=== PATIENT | male | born 1980 ===

== ENCOUNTER 2018-04-08 19:06 | Emergency (ER) | payer MEDICAID, OTHER ==
[2018-04-08 19:06] VITALS: BMI 31.4
[2018-04-08 19:16] VITALS: TEMP 98; O2SAT 99
[2018-04-08 20:19] LABS: BASO # 0.1 K/uL (0.0-0.2); BASO % 0.7 % (0.0-2.0); EOS # 0.3 K/uL (0.0-0.7); EOS % 2.8 % (0.0-4.0); HEMOGLOBIN 15.2 g/dL (12.0-18.0); LYMPH # 3.3 K/uL (1.0-4.3); LYMPH % 32.5 % (20.0-40.0); MEAN CELL VOLUME 89.5 fl (80.0-94.0); MEAN CORPUSCULAR HEMOGLOBIN 30.9 pg (27.0-31.0); MEAN CORPUSCULAR HGB CONC 34.5 g/dL (33.0-37.0); MEAN PLATELET VOLUME 9.1 fl (7.2-11.7); MONO # 0.8 K/uL (0.0-0.8); MONO % 7.3 % (0.0-10.0); NEUT # 5.8 K/uL (1.8-7.0); NEUT % 56.7 % (50.0-75.0); RBC 4.94 Mil/uL (4.40-5.90); RED CELL DISTRIBUTION WIDTH 13.7 % (11.5-14.5); WHITE BLOOD COUNT 10.3 K/uL (4.8-10.8)
[2018-04-08 20:34] LABS: ALB/GLOB RATIO 1.2 (1.0-2.1); ALBUMIN 4.2 g/dL (3.5-5.0); ALT/SGPT 67 U/L (21-72); AST/SGOT 40 U/L (17-59); BLOOD UREA NITROGEN 15 mg/dl (9-20); CALCIUM 9.7 mg/dL (8.4-10.2); GFR AFRICAN-AMERICAN > 60; GFR NON-AFRICAN AMERICAN > 60; LIPASE 92 U/L (23-300)
--- NOTE | 2018-04-08 20:42 | ED PDOC ---
HPI: Chest Pain Time Seen by Provider: 04/08/18 19:25 Chief Complaint (Nursing): Chest Pain Chief Complaint (Provider): chest pain History Per: Patient History/Exam Limitations: no limitations Onset/Duration Of Symptoms: Days (5 days) Current Symptoms Are (Timing): Constant Quality: Pressure Exacerbating Factors: Deep Breathing Additional Complaint(s): 37 year old male presents to the ED complaining of chest pain onset 5 days ago. Reports as he was smoking a cigarette, he felt pain on the right side of his neck and the pain radiated down to his chest and left upper quadrant. Describes the pain as constant and pressure-like. It is becomes worse with deep breaths or lying down. Patient took ibuprofen without any relief. He has developed fever , chills, and dizziness. Denies cough, nausea, or vomiting. PMD: [facility] Past Medical History Reviewed: Historical Data, Nursing Documentation, Vital Signs Vital Signs: Last Vital Signs Temp 98 F 04/08/18 19:13 Pulse 82 04/08/18 20:05 Resp 18 04/08/18 19:13 BP 129/74 04/08/18 20:05 Pulse Ox 99 04/09/18 00:17 - Medical History PMH: Asthma - Family History Family History: States: Unknown Family Hx - Social History Current smoker - smoking cessation education provided: Yes Alcohol: Other (rarely) Drugs: Denies - Immunization History Hx Tetanus Toxoid Vaccination: No Hx Influenza Vaccination: No Hx Pneumococcal Vaccination: No - Home Medications Home Medications: Ambulatory Orders Medication Instructions Recorded traMADol [Ultram] 50 mg PO Q6 PRN #20 tab 05/18/17 Acetaminophen [Tylenol Extra 1,000 mg PO Q6 PRN #100 tablet 04/09/18 Strength] Omeprazole Magnesium [Prilosec Otc] 20 mg PO DAILY #30 tcp 04/09/18 traMADol [Ultram] 50 mg PO TID PRN #15 tab 04/09/18 - Allergies Allergies/Adverse Reactions: Allergies Allergy/AdvReac Type Severity Reaction Status Date / Time No Known Allergies Allergy Verified 05/30/17 16:33 Review of Systems ROS Statement: Except As Marked, All Systems Reviewed And Found Negative (As per HPI, otherwise neative) Constitutional: Positive for: Fever, Chills Cardiovascular: Positive for: Chest Pain Respiratory: Negative for: Cough Gastrointestinal: Positive for: Abdominal Pain (LUQ). Negative for: Nausea, Vomiting Neurological: Positive for: Dizziness Physical Exam - Reviewed Nursing Documentation Reviewed: Yes Vital Signs Reviewed: Yes - Physical Exam Appears: Positive for: In Acute Distress (moderate painful) Head Exam: Positive for: ATRAUMATIC, NORMOCEPHALIC Skin: Positive for: Warm, Dry Eye Exam: Positive for: EOMI, PERRL ENT: Positive for: Pharynx Is (clear) Neck: Positive for: Normal, Painless ROM, Supple. Negative for: Decreased ROM Cardiovascular/Chest: Positive for: Regular Rate, Rhythm. Negative for: Murmur Respiratory: Positive for: Normal Breath Sounds. Negative for: Wheezing, Respiratory Distress Gastrointestinal/Abdominal: Positive for: Soft, Tenderness (LUQ). Negative for : Mass, Distended, Guarding, Rebound Back: Positive for: Normal Inspection. Negative for: Decreased ROM Extremity: Positive for: Normal ROM. Negative for: Pedal Edema, Deformity Lymphatic: Negative for: Adenopathy Neurologic/Psych: Positive for: Alert. Negative for: Motor/Sensory Deficits - Laboratory Results Result Diagrams: 04/08/18 20:15 04/08/18 20:15 - ECG ECG: Positive for: Interpreted By Or ECG Rhythm: Positive for: Normal ST Segment, Sinus Rhythm (similar to previous) O2 Sat by Pulse Oximetry: 99 (RA) Pulse Ox Interpretation: Normal - Radiology X-Ray: Interpreted by Or X-Ray Interpretation: No Acute Disease Medical Decision Making Medical Decision Making: Time: 1939 Initial Impression: chest pain and LUQ abdominal pain Initial Plan: --EKG --CMP --Drug Screen, Urine --Lipase --Magnesium --Phosphorous --Troponin I --ED Urine dipstick --CBC w/ Differential --D-Dimer [COAG] --PTT --Prothrombin Time --Chest Two Views --Morphine 2mg --Protonix 40MG IVP --Tylenol 975mg --Reevaluation CXR No acuted findings Labs demonstrate no acute findings Time: 2131 CT Abdomen/Pelvis is ordered. Time: 10 CT Abdomen/Pelvis FINDINGS: Lung bases: Mild atelectasis/scarring. ABDOMEN: Liver: Fatty infiltration. Gallbladder and bile ducts: No calcified stones. No ductal dilation. Pancreas: No ductal dilation. No mass. Spleen: No splenomegaly. Adrenals: No mass. Kidneys and ureters: No mass. No hydronephrosis. Stomach and bowel: No definite mural thickening. No obstruction. PELVIS: Appendix: Normal caliber. No inflammation. Bladder: Unremarkable. Reproductive: Unremarkable as visualized. ABDOMEN and PELVIS: Intraperitoneal space: No significant fluid collection. No free air. Bones/joints: No acute fracture. Soft tissues: Tiny umbilical hernia containing fat. Small LEFT inguinal hernia containing fat. Vasculature: Retroaortic LEFT renal vein. No aneurysm. Lymph nodes: No pathologically enlarged lymph nodes. IMPRESSION: 1. No definite acute intraabdominal abnormality. 2. Incidental/non-acute findings are described above. Dictated and Authenticated by: Lane Krishnamurthy MD 04/09/2018 12:11 AM Eastern Time ([place] & [place]) Scribe Attestation: Documented by Claude Cummins, acting as a scribe for Silva Henderson MD Provider Scribe Attestation: All medical record entries made by the Scribe were at my direction and personally dictated by me. I have reviewed the chart and agree that the record accurately reflects my personal performance of the history, physical exam, medical decision making, and the department course for this patient. I have also personally directed, reviewed, and agree with the discharge instructions and disposition. Disposition - Clinical Impression Clinical Impression: Chest pain, Abdominal pain - Disposition Referrals: [facility] [Provider Group] (CALL TOMORROW TO SETUP FOLLOW UP APPOINTMENT BY THE END OF THE WEEK) Disposition: Routine/Home Disposition Time: 00:00 Condition: IMPROVED Prescriptions: Acetaminophen [Tylenol Extra Strength] 1,000 mg PO Q6 PRN #100 tablet PRN Reason: FEVER OR PAIN Omeprazole Magnesium [Prilosec Otc] 20 mg PO DAILY #30 tcp traMADol [Ultram] 50 mg PO TID PRN #15 tab PRN Reason: SEVERE PAIN ONLY Instructions: Acute Abdomen (Belly Pain), Adult (DC), Chest Pain (DC) Forms: [facility] ED School/Work Excuse
[2018-04-08 20:46] LABS: PROTHROMBIN TIME 11.3 Seconds (9.8-13.1)
[2018-04-08 20:47] LABS: PARTIAL THROMBOPLASTIN TIME 31.7 Seconds (25.6-37.1)
[2018-04-08 21:25] LABS: BARBITURATES, UR NEGATIVE (NEGATIVE); BENZODIAZEPINES, UR NEGATIVE (NEGATIVE); OPIATES, UR POSITIVE (NEGATIVE); PHENCYCLIDINE, UR NEGATIVE (NEGATIVE)
[2018-04-08] MEDS ORDERED: Sodium Chloride 0.9% 50 ML IV ONE (23:04)
[2018-04-08] MEDS ORDERED: Iohexol 300 100 ML IJ ONE (23:04)
--- NOTE | 2018-04-09 00:11 | CT ---
EXAM: CT Abdomen and Pelvis With Intravenous Contrast CLINICAL HISTORY: 37 years old, male; Pain; Abdominal pain; Localized; Left upper quadrant (luq); Additional info: Luq pain TECHNIQUE: Axial computed tomography images of the abdomen and pelvis with intravenous contrast. All CT scans at this facility use one or more dose reduction techniques, viz.: automated exposure control; ma/kV adjustment per patient size (including targeted exams where dose is matched to indication; i.e. head); or iterative reconstruction technique. Coronal and sagittal reformatted images were created and reviewed. CONTRAST: 95 mL of [id number] administered intravenously. COMPARISON: No relevant prior studies available. FINDINGS: Lung bases: Mild atelectasis/scarring. ABDOMEN: Liver: Fatty infiltration. Gallbladder and bile ducts: No calcified stones. No ductal dilation. Pancreas: No ductal dilation. No mass. Spleen: No splenomegaly. Adrenals: No mass. Kidneys and ureters: No mass. No hydronephrosis. Stomach and bowel: No definite mural thickening. No obstruction. PELVIS: Appendix: Normal caliber. No inflammation. Bladder: Unremarkable. Reproductive: Unremarkable as visualized. ABDOMEN and PELVIS: Intraperitoneal space: No significant fluid collection. No free air. Bones/joints: No acute fracture. Soft tissues: Tiny umbilical hernia containing fat. Small LEFT inguinal hernia containing fat. Vasculature: Retroaortic LEFT renal vein. No aneurysm. Lymph nodes: No pathologically enlarged lymph nodes. IMPRESSION: 1. No definite acute intraabdominal abnormality. 2. Incidental/non-acute findings are described above.
[2018-04-09 00:30] VITALS: BP 126/83; PULSE 88; RESP 13
--- NOTE | 2018-04-09 07:52 | RAD ---
HISTORY: chest pain COMPARISON: No prior. TECHNIQUE: Chest PA and lateral FINDINGS: LUNGS: No active pulmonary disease. PLEURA: No significant pleural effusion identified. No pneumothorax apparent. CARDIOVASCULAR: Normal. OSSEOUS STRUCTURES: No significant abnormalities. VISUALIZED UPPER ABDOMEN: Normal. OTHER FINDINGS: None. IMPRESSION: No acute cardiopulmonary disease appreciated.
--- NOTE | 2018-04-09 08:59 | CARD ---
APPROVED REPORT EKG Measurement Heart [id number] <Conclusion> Normal sinus rhythm Low voltage QRS Cannot rule out Anteroseptal infarct, age undetermined Abnormal ECG
== END 2018-04-09 00:29 | disposition home or self-care (01) ==
LOC: H.ER 19:06
DX: R07.89 Other chest pain (principal); R10.9 Unspecified abdominal pain; K42.9 Umbilical hernia without obstruction or gangrene; J45.909 Unspecified asthma, uncomplicated; F17.210 Nicotine dependence, cigarettes, uncomplicated; K76.0 Fatty (change of) liver, not elsewhere classified
CPT/HCPCS: 71046; 74177; 80053; 80324; 80345; 80346; 80349; 80353; 80358; 80361; 83690; 83735; 83992; 84100; 84484; 85025; 85378; 85610; 85730; 93005; 96374; 96375; 99284; C9113; J2270; Q9967